=== PATIENT | female | born 1995 | race Native Hawaiian/Other Pacific Islander ===

== ENCOUNTER 2017-01-21 10:41 | Emergency (ER) | payer OTHER ==
[~2017-01-21] VITALS: Ht 167.6 cm; Wt 62.0 kg
[~2017-01-21 10:41] MED LIST: ASPI325T PO; CEPH500C3 PO; METO10TA PO
[2017-01-21 10:44] VITALS: BP 116/76; PULSE 85; RESP 16; TEMP 98.6; O2SAT 98
--- NOTE | 2017-01-21 11:04 | PD ---
HPI Chief Complaint: Laceration/Skin Injury Time Seen by Provider: 11:00 Travel History International Travel<30 days: No Contact w/Intl Traveler<30days: No Traveled to known affect area: No History of Present Illness HPI 21-year-old [place] female presents the emergency department as rotation to the right fifth palmar webspace. Patient states she was taking out the trash this morning when her hand slipped and accidentally cut this area with a razor that was in the trash. She denies numbness, tingling, or loss of function. He is currently controlled with pressure. Last tetanus shot was 2012. Pain is minimal. She has no known drug allergies. PFSH Past Medical History Diminished Hearing: No Migraines: Yes ?: Unknown : 2 Para: 1 Past Surgical History Section: No Social History Alcohol Use: No Tobacco Use: No Substance Use: No Allergies-Medications (Allergen,Severity, Reaction): Coded Allergies: No Known Allergies (Unverified , 01/21/17) Reported Meds & Prescriptions Reported Meds & Active Scripts Active Reported Multiple Vitamin 1 Tab 1 Tab PO DAILY Review of Systems Except as stated in HPI: all other systems reviewed are Neg General / Constitutional: No: Fever Eyes: No: Visual changes HENT: No: Headaches Cardiovascular: No: Chest Pain or Discomfort Respiratory: No: Shortness of Breath Gastrointestinal: No: Abdominal Pain Genitourinary: No: Dysuria Musculoskeletal: No: Pain Skin: No Rash Neurologic: No: Weakness Psychiatric: No: Depression Endocrine: No: Polydipsia Hematologic/Lymphatic: No: Easy Bruising Physical Exam Narrative GENERAL: Patient appears no acute distress. SKIN: Warm and dry. Patient has a 2 cm linear deep laceration to the palmar surface of the fourth web space between the ring and pinky finger. HEAD: Atraumatic. Normocephalic. EYES: Pupils equal and round. No scleral icterus. No injection or drainage. ENT: No nasal bleeding or discharge. Mucous membranes pink and moist. Pharynx is clear. Airway is patent. NECK: Trachea midline. Supple CARDIOVASCULAR: Regular rate and rhythm. RESPIRATORY: No accessory muscle use. Clear to auscultation. Breath sounds equal bilaterally. MUSCULOSKELETAL: Extremities without clubbing, cyanosis, or edema. No obvious deformities. 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 NEUROLOGICAL: Awake and alert. No obvious cranial nerve deficits. Motor grossly within normal limits. Patient has no loss of feeling in the right hand. Five out of 5 muscle strength in the arms and legs. Normal speech. PSYCHIATRIC: Appropriate mood and affect; insight and judgment normal. Data Data Last Documented VS Vital Signs Date Time Temp Pulse Resp B/P Pulse Ox O2 Delivery O2 Flow Rate FiO2 01/21/17 10:44 98.6 85 16 116/76 98 MDM Medical Decision Making Medical Screen Exam Complete: Yes Emergency Medical Condition: Yes Differential Diagnosis Accidental laceration. Laceration right hand. Need for suture. Narrative Course Laceration was repaired. See laceration note. Patient will be placed on cephalexin 500 mg 3 times a day for 5 days. Dressing is to remain in place for the next 48 hours. Patient is to avoid prolonged water exposure or swimming while sutures are in place. Patient can take Tylenol or ibuprofen as needed for discomfort. Patient follow-up in 7 days for wound check and possible suture removal at that time. Diagnosis Primary Impression: Laceration of right hand without complication, excluding fingers Qualified Code: S61.411A - Laceration of right hand without complication, excluding fingers, initial encounter Additional Instructions: Laceration was repaired. Patient will be placed on cephalexin 500 mg 3 times a day for 5 days. Dressing is to remain in place for the next 48 hours. Patient is to avoid prolonged water exposure or swimming while sutures are in place. Patient can take Tylenol or ibuprofen as needed for discomfort. Patient follow-up in 7 days for wound check and possible suture removal at that time. Med/Other Pt SpecificInfo: Prescription(s) given Scripts Cephalexin 500 Mg [id number] Mg PO Q8H #15 CAP Prov:Shazia Morris MD 01/21/17 Disposition: 01 DISCHARGE HOME Condition: Stable Elliot Henderson Jan 21, 2017 11:04
[2017-01-21] MEDS ORDERED: MULTTAB67 PO (11:08)
[2017-01-21] MEDS ORDERED: CEPH500C PO (11:32)
[2017-01-21] MEDS ORDERED: LIDOCAINE 1%/EPINEPHrine 1:100,000 SOLN 20 ML VIAL INFIL ONE (11:45)
== END 2017-01-21 11:49 | disposition home or self-care (01) ==
LOC: NEPD 10:41
DX: S61.411A Laceration without foreign body of right hand, initial encounter (principal); W45.8XXA Other foreign body or object entering through skin, initial encounter
CPT/HCPCS: 12001

== ENCOUNTER 2017-01-28 09:49 | Emergency (ER) | payer OTHER ==
[~2017-01-28] VITALS: Ht 167.6 cm; Wt 62.0 kg
[~2017-01-28 09:49] MED LIST changes: -ASPI325T PO; +CEPH500C PO; -CEPH500C3 PO; -METO10TA PO; +MULTTAB67 PO
[2017-01-28 09:50] VITALS: BP 110/60; PULSE 66; RESP 16; TEMP 98.4; O2SAT 100
--- NOTE | 2017-01-28 10:14 | PD ---
HPI Chief Complaint: Wound/Suture/Staple Re-Check Time Seen by Provider: 10:11 Travel History International Travel<30 days: No Contact w/Intl Traveler<30days: No Traveled to known affect area: No History of Present Illness HPI 21-year-old female presents to the emergency department for right hand suture removal. Patient sustained a laceration to her right hand 8 days ago. She came to our ED and had laceration repair with sutures. States she took all the antibiotics as prescribed. She denies any redness, swelling, discharge or drainage from the site. No other complaints. PFSH Past Medical History Diminished Hearing: No Immunizations Current: Yes Migraines: Yes ?: Not : 2 Para: 1 Past Surgical History Section: No Social History Alcohol Use: No Tobacco Use: No Substance Use: No Allergies-Medications (Allergen,Severity, Reaction): Coded Allergies: No Known Allergies (Unverified , 01/28/17) Reported Meds & Prescriptions Reported Meds & Active Scripts Active Cephalexin 500 Mg Cap 500 Mg PO Q8H Reported Multiple Vitamin 1 Tab 1 Tab PO DAILY Review of Systems Except as stated in HPI: all other systems reviewed are Neg Physical Exam Narrative GENERAL: Well-nourished and well-developed pleasant patient in no acute distress who is nontoxic appearing. SKIN: Warm and dry. Right hand well-healed laceration to fall are aspect between fourth and fifth digits on the palm. No erythema, swelling, discharge or drainage. HEAD: Normocephalic and atraumatic. EYES: No injection, drainage, or hyphema noted. PERRLA. EOMI. NECK: Supple and the trachea is midline. CARDIOVASCULAR: Regular rate and rhythm. RESPIRATORY: Breath sounds are equal bilaterally with no accessory muscle use, wheezing, rhonchi, or crackles. MUSCULOSKELETAL: No obvious deformities, swelling, cyanosis, or ecchymosis is present throughout the upper and lower extremities. Patient has full range of motion without any signs of neurovascular compromise. NEUROLOGICAL: Awake, alert, and oriented. Normal speech and gait. Cranial nerves are grossly intact. Data Data Last Documented VS Vital Signs Date Time Temp Pulse Resp B/P Pulse Ox O2 Delivery O2 Flow Rate FiO2 01/28/17 09:50 98.4 66 16 110/60 100 Room Air MDM Medical Decision Making Medical Screen Exam Complete: Yes Emergency Medical Condition: Yes Differential Diagnosis Suture removal versus wound recheck versus wound care Narrative Course 21-year-old female presents to the emergency department for evaluation of suture removal. Patient is afebrile, vital signs are stable. She sustained a laceration 8 days ago and had suture repair here in our ED. Wound appears well- healed with no signs of infection. Sutures are removed without difficulty. Patient is stable for discharge. Diagnosis Primary Impression: Encounter for removal of sutures Additional Instructions: Return to the ED for any acute worsening of symptoms. Med/Other Pt SpecificInfo: No Change to Meds Disposition: 01 DISCHARGE HOME Condition: Stable Neda Null Jan 28, 2017 10:14
== END 2017-01-28 10:25 | disposition home or self-care (01) ==
LOC: NEPK 09:49
DX: Z48.02 Encounter for removal of sutures (principal); Z79.899 Other long term (current) drug therapy
CPT/HCPCS: 99281